=== PATIENT | male | born 1985 | race African-American/Black ===

== ENCOUNTER 2016-05-19 06:52 | Emergency (ER) | payer MEDICAID ==
[~2016-05-19] VITALS: Ht 175.3 cm; Wt 84.0 kg
[2016-05-19 07:47] LABS: HEMATOCRIT. 42.7 % (42.0-52.0); MEAN CORPUSCULAR HEMOGLOBIN 27.3 pg (28.0-32.0); MEAN CORPUSCULAR HGB CONC 32.9 g/dL (31.0-37.0); MEAN PLATELET VOLUME 7.5 fl (7.4-10.4); PLATELET 303 x1000/uL (130-400); RED BLOOD CELL COUNT 5.14 mill/uL (4.7-6.1); RED CELL DISTRIBUTION WIDTH 15.1 % (11.6-14.6); WHITE BLOOD COUNT 5.9 x1000/uL (4.5-11.0)
[2016-05-19 07:48] LABS: DIFFERENTIAL COMMENT 1
[2016-05-19 08:00] LABS: ALANINE AMINOTRANSFERASE 25 IU/L (13-61); ALBUMIN 3.9 g/dL (3.4-5.0); ANION GAP 12; CALCIUM 8.3 mg/dL (8.5-10.1); CARBON DIOXIDE 30 mEq/L (21-32); CHLORIDE 103 mEq/L (98-107); INDEX HEMOLYSI 1 (1-3); INDEX ICTERIC 1 (1-4); INDEX LIPEMIC 1 (1-3); LIPASE 141 IU/L (73-393); UREA NITROGEN BLOOD 13 mg/dL (7-21); eGFR > 60 mL/min (>60)
[2016-05-19 08:11] LABS: ANISOCYTOSIS 1+; PLATELET ESTIMATE NORMAL
[2016-05-19] MEDS ORDERED: IBUPROFEN 400MG TABLET PO ONE (08:45)
[2016-05-19 09:58] VITALS: BP 135/72
== END 2016-05-19 09:59 | disposition home or self-care (01) ==
LOC: ER 08:01
DX: R52 Pain, unspecified (principal); F31.9 Bipolar disorder, unspecified; F41.9 Anxiety disorder, unspecified; F20.9 Schizophrenia, unspecified; F17.200 Nicotine dependence, unspecified, uncomplicated; F12.10 Cannabis abuse, uncomplicated
CPT/HCPCS: 36415; 71010; 80053; 83690; 85025; 99285; Z7610

== ENCOUNTER 2016-07-25 08:09 | Emergency (ER) | payer MEDICAID ==
[~2016-07-25] VITALS: Ht 175.3 cm; Wt 80.0 kg
[2016-07-25 08:10] VITALS: BP 134/90
[2016-07-25 09:01] LABS: BASOPHILS % 0.9 % (0.0-2.0); EOSINOPHILS % 0.1 % (0.0-5.0); HEMOGLOBIN. 13.9 g/dL (14.0-18.0); LYMPHOCYTES % 13.4 % (20.0-50.0); MEAN CORPUSCULAR VOLUME 81.8 fL (80.0-94.0); MONOCYTES % 6.9 % (2.0-8.0); NEUTROPHILS % 78.7 % (40.0-76.0); PLATELET 276 x1000/uL (130-400); RED BLOOD CELL COUNT 5.13 mill/uL (4.7-6.1); RED CELL DISTRIBUTION WIDTH 14.5 % (11.6-14.6)
[2016-07-25 09:14] LABS: CARBON DIOXIDE 33 mEq/L (21-32); CHLORIDE 102 mEq/L (98-107); ETHANOL BLOOD < 10 mg/dL
[2016-07-25 10:45] LABS: CLARITY URINE CLEAR (CLEAR); COLOR URINE YELLOW (YELLOW); GLUCOSE URINE NEGATIVE (NEGATIVE); KETONES URINE NEGATIVE (NEGATIVE); LEUKOCYTE ESTERASE URINE NEGATIVE (NEGATIVE); NITRITE URINE NEGATIVE (NEGATIVE); OCCULT BLOOD URINE NEGATIVE (NEGATIVE); PROTEIN URINE NEGATIVE (NEGATIVE); SPECIFIC GRAVITY URINE 1.007 (1.005-1.030); UROBILINOGEN URINE 0.2 E.U./dL (0.2-1.0)
[2016-07-25 10:57] LABS: *AMPHETAMINES SCREEN URINE PRESUMTIVE POSITIVE (NEGATIVE); *BARBITURATES SCREEN URINE NEGATIVE (NEGATIVE); *BENZODIAZEPINES SCREEN URINE NEGATIVE (NEGATIVE); *COCAINE SCREEN URINE NEGATIVE (NEGATIVE); CANNABINOID URINE SCREEN PRESUMTIVE POSITIVE (NEGATIVE); METHADONE URINE SCREEN NEGATIVE (NEGATIVE); OPIATES URINE SCREEN NEGATIVE (NEGATIVE); PHENCYCLIDINE URINE SCREEN NEGATIVE (NEGATIVE)
[2016-07-25] MEDS ORDERED: MAGNESIUM/ALUMINUM HYDROXIDE/SIMETHICONE 30ML UDC PO STA (11:12)
[2016-07-25] MEDS ORDERED: VISCOUS LIDOCAINE 2% 15 ML UDC PO STA (11:12)
== END 2016-07-25 13:38 | disposition home or self-care (01) ==
LOC: ER 08:15
DX: K29.70 Gastritis, unspecified, without bleeding (principal); F41.9 Anxiety disorder, unspecified; F31.9 Bipolar disorder, unspecified; F20.9 Schizophrenia, unspecified; F15.10 Other stimulant abuse, uncomplicated; F12.10 Cannabis abuse, uncomplicated; Z90.49 Acquired absence of other specified parts of digestive tract
CPT/HCPCS: 36415; 80053; 80305; 81003; 83690; 85025; 99284; G0482

== ENCOUNTER 2016-10-27 19:09 | Emergency (ER) | payer MEDICAID ==
[~2016-10-27] VITALS: Ht 177.8 cm; Wt 75.0 kg
[2016-10-27 19:43] VITALS: BP 150/78
== END 2016-10-28 00:17 | disposition left against medical advice (07) ==
LOC: ER 19:09
DX: R10.9 Unspecified abdominal pain (principal); Z53.21 Procedure and treatment not carried out due to patient leaving prior to being seen by health care provider

== ENCOUNTER 2016-11-15 17:21 | Emergency (ER) | payer MEDICAID ==
[~2016-11-15] VITALS: Ht 175.3 cm; Wt 84.0 kg
[2016-11-15 17:34] VITALS: BP 129/95
== END 2016-11-15 19:10 | disposition left against medical advice (07) ==
LOC: ER 17:21
DX: N50.819 Testicular pain, unspecified (principal); Z53.21 Procedure and treatment not carried out due to patient leaving prior to being seen by health care provider

== ENCOUNTER 2017-03-03 21:43 | Emergency (ER) | payer MEDICAID | END 2017-03-03 21:45 | disposition left against medical advice (07) | LOC: ER 21:43 | DX: R10.9 Unspecified abdominal pain (principal); Z53.21 Procedure and treatment not carried out due to patient leaving prior to being seen by health care provider ==

== ENCOUNTER 2017-03-04 06:37 | Emergency (ER) | payer MEDICAID ==
[~2017-03-04] VITALS: Ht 175.3 cm; Wt 81.0 kg
[2017-03-04 07:45] VITALS: BP 120/76
[2017-03-04] MEDS ORDERED: ACETAMINOPHEN 325MG TABLET PO STA (08:19)
[2017-03-04] MEDS ORDERED: ONDANSETRON 4MG ODT PO STA (08:19)
[2017-03-04 08:40] LABS: BASOPHILS % 1.2 % (0.0-2.0); EOSINOPHILS % 5.3 % (0.0-5.0); HEMATOCRIT. 44.4 % (42.0-52.0); HEMOGLOBIN. 14.3 g/dL (14.0-18.0); LYMPHOCYTES % 48.9 % (20.0-50.0); MEAN CORPUSCULAR VOLUME 83.6 fL (80.0-94.0); MEAN PLATELET VOLUME 7.6 fl (7.4-10.4); MONOCYTES % 8.5 % (2.0-8.0); NEUTROPHILS % 36.1 % (40.0-76.0); PLATELET 294 x1000/uL (130-400); RED BLOOD CELL COUNT 5.31 mill/uL (4.7-6.1); RED CELL DISTRIBUTION WIDTH 14.9 % (11.6-14.6)
[2017-03-04 08:45] LABS: CHLORIDE 103 mEq/L (98-107)
[2017-03-04 08:47] LABS: INR 1.1; PROTHROMBIN TIME 11.1 sec (9.4-11.6)
[2017-03-04 08:54] LABS: CARBON DIOXIDE 33 mEq/L (21-32)
== END 2017-03-04 09:14 | disposition home or self-care (01) ==
LOC: ER 07:15
DX: R10.9 Unspecified abdominal pain (principal); F17.200 Nicotine dependence, unspecified, uncomplicated; F12.10 Cannabis abuse, uncomplicated
CPT/HCPCS: 36415; 80053; 83690; 85025; 85610; 99284; Q0162; Z7610

== ENCOUNTER 2017-05-01 10:52 | Emergency (ER) | payer MEDICAID ==
[~2017-05-01] VITALS: Ht 177.8 cm; Wt 83.0 kg
[2017-05-01] MEDS ORDERED: LORAZEPAM 1MG TABLET PO ONE (12:30)
[2017-05-01] MEDS ORDERED: ONDANSETRON 4MG ODT PO ONE (12:30)
[2017-05-01 13:15] LABS: CLARITY URINE CLEAR (CLEAR); COLOR URINE YELLOW (YELLOW); KETONES URINE NEGATIVE (NEGATIVE); LEUKOCYTE ESTERASE URINE NEGATIVE (NEGATIVE); NITRITE URINE NEGATIVE (NEGATIVE); OCCULT BLOOD URINE NEGATIVE (NEGATIVE); PROTEIN URINE NEGATIVE (NEGATIVE); SPECIFIC GRAVITY URINE 1.002 (1.005-1.030); UROBILINOGEN URINE 0.2 E.U./dL (0.2-1.0)
[2017-05-01 13:34] LABS: *AMPHETAMINES SCREEN URINE PRESUMTIVE POSITIVE (NEGATIVE); *BARBITURATES SCREEN URINE NEGATIVE (NEGATIVE); *BENZODIAZEPINES SCREEN URINE NEGATIVE (NEGATIVE); *COCAINE SCREEN URINE NEGATIVE (NEGATIVE); CANNABINOID URINE SCREEN PRESUMTIVE POSITIVE (NEGATIVE); METHADONE URINE SCREEN NEGATIVE (NEGATIVE); OPIATES URINE SCREEN NEGATIVE (NEGATIVE); PHENCYCLIDINE URINE SCREEN NEGATIVE (NEGATIVE)
[2017-05-01 15:15] LABS: EOSINOPHILS % 0.9 % (0.0-5.0); HEMATOCRIT. 41.2 % (42.0-52.0); LYMPHOCYTES % 36.1 % (20.0-50.0); MEAN CORPUSCULAR HEMOGLOBIN 27.7 pg (28.0-32.0); MEAN CORPUSCULAR VOLUME 81.7 fL (80.0-94.0); MEAN PLATELET VOLUME 7.5 fl (7.4-10.4); PLATELET 421 x1000/uL (130-400); RED BLOOD CELL COUNT 5.05 mill/uL (4.7-6.1); RED CELL DISTRIBUTION WIDTH 14.4 % (11.6-14.6)
[2017-05-01 15:21] LABS: CHLORIDE 103 mEq/L (98-107)
[2017-05-01 15:26] LABS: ETHANOL BLOOD < 10 mg/dL
[2017-05-01] MEDS ORDERED: OLANZAPINE 10MG TABLET PO SCH (17:00)
[2017-05-02 04:52] VITALS: BP 104/70
== END 2017-05-02 07:12 | disposition home or self-care (01) ==
LOC: ER 10:52
DX: F29 Unspecified psychosis not due to a substance or known physiological condition (principal); F19.10 Other psychoactive substance abuse, uncomplicated; F12.10 Cannabis abuse, uncomplicated; F17.200 Nicotine dependence, unspecified, uncomplicated; F15.10 Other stimulant abuse, uncomplicated; Z90.49 Acquired absence of other specified parts of digestive tract
CPT/HCPCS: 36415; 80053; 80305; 81003; 85025; 99284; G0482; J7030; Z7610

== ENCOUNTER 2017-05-05 23:54 | Emergency (ER) | payer MEDICAID ==
[~2017-05-05] VITALS: Ht 175.3 cm; Wt 71.0 kg
[2017-05-06] MEDS ORDERED: KETOROLAC 60MG/2ML VIAL IM ONE (00:45)
[2017-05-06 04:00] VITALS: BP 126/82
== END 2017-05-06 04:40 | disposition home or self-care (01) ==
LOC: ER 05-06 00:38
DX: R51 Headache (principal); F17.200 Nicotine dependence, unspecified, uncomplicated; F12.10 Cannabis abuse, uncomplicated; F15.10 Other stimulant abuse, uncomplicated; Z90.49 Acquired absence of other specified parts of digestive tract; Y04.0XXA Assault by unarmed brawl or fight, initial encounter; Y93.89 Activity, other specified; Y92.89 Other specified places as the place of occurrence of the external cause
CPT/HCPCS: 70486; 96372; 99284; J1885; Z7610

== ENCOUNTER 2017-05-19 00:38 | Emergency (ER) | payer MEDICAID ==
[~2017-05-19] VITALS: Ht 175.3 cm; Wt 80.0 kg
[2017-05-19 04:00] VITALS: BP 116/70
== END 2017-05-19 04:45 | disposition home or self-care (01) ==
LOC: ER 00:52
DX: J02.9 Acute pharyngitis, unspecified (principal); F17.200 Nicotine dependence, unspecified, uncomplicated; F12.10 Cannabis abuse, uncomplicated; Z90.49 Acquired absence of other specified parts of digestive tract; Z98.890 Other specified postprocedural states
CPT/HCPCS: 99282

== ENCOUNTER 2017-06-26 01:11 | Emergency (ER) | payer MEDICAID ==
[~2017-06-26] VITALS: Ht 175.3 cm; Wt 86.0 kg
[2017-06-26] MEDS ORDERED: OLANZAPINE 10MG TABLET ODT PO ONE (01:30)
[2017-06-26 01:44] LABS: HEMATOCRIT. 39.2 % (42.0-52.0); HEMOGLOBIN. 13.1 g/dL (14.0-18.0); MEAN CORPUSCULAR HEMOGLOBIN 27.2 pg (28.0-32.0); MEAN CORPUSCULAR VOLUME 81.7 fL (80.0-94.0); MEAN PLATELET VOLUME 7.2 fl (7.4-10.4); PLATELET 316 x1000/uL (130-400); RED BLOOD CELL COUNT 4.79 mill/uL (4.7-6.1); RED CELL DISTRIBUTION WIDTH 15.2 % (11.6-14.6)
[2017-06-26] MEDS ORDERED: OLANZAPINE 10 MG/VIAL IM ONE (01:45)
[2017-06-26 01:53] LABS: CHLORIDE 106 mEq/L (98-107)
[2017-06-26 01:57] LABS: ETHANOL BLOOD < 10 mg/dL
[2017-06-26 02:38] LABS: PLATELET ESTIMATE NORMAL
[2017-06-26 09:17] LABS: CLARITY URINE CLEAR (CLEAR); COLOR URINE YELLOW (YELLOW); KETONES URINE TRACE (NEGATIVE); LEUKOCYTE ESTERASE URINE NEGATIVE (NEGATIVE); NITRITE URINE NEGATIVE (NEGATIVE); OCCULT BLOOD URINE NEGATIVE (NEGATIVE); PROTEIN URINE NEGATIVE (NEGATIVE); SPECIFIC GRAVITY URINE 1.028 (1.005-1.030)
[2017-06-26 10:00] LABS: CANNABINOID URINE SCREEN PRESUMTIVE POSITIVE (NEGATIVE); PHENCYCLIDINE URINE SCREEN NEGATIVE (NEGATIVE)
[2017-06-26 10:01] LABS: *AMPHETAMINES SCREEN URINE PRESUMTIVE POSITIVE (NEGATIVE); METHADONE URINE SCREEN NEGATIVE (NEGATIVE)
[2017-06-26 10:04] LABS: *COCAINE SCREEN URINE NEGATIVE (NEGATIVE); OPIATES URINE SCREEN NEGATIVE (NEGATIVE)
[2017-06-26 10:05] LABS: *BARBITURATES SCREEN URINE NEGATIVE (NEGATIVE)
[2017-06-26 10:08] LABS: *BENZODIAZEPINES SCREEN URINE NEGATIVE (NEGATIVE)
[2017-06-26 14:14] VITALS: BP 101/72
== END 2017-06-26 14:38 | disposition home or self-care (01) ==
LOC: ER 01:11
DX: F29 Unspecified psychosis not due to a substance or known physiological condition (principal)
CPT/HCPCS: 36415; 80053; 80305; 80307; 80329; 81003; 85025; 96372; 99284; G0482; J3490; Z7610

== ENCOUNTER 2017-09-04 13:42 | Emergency (ER) | payer MEDICAID ==
[~2017-09-04] VITALS: Ht 175.3 cm; Wt 86.0 kg
[2017-09-04 19:00] VITALS: BP 120/82
== END 2017-09-04 19:13 | disposition home or self-care (01) ==
LOC: ER 14:51
DX: S90.562A Insect bite (nonvenomous), left ankle, initial encounter (principal); L29.9 Pruritus, unspecified; W57.XXXA Bitten or stung by nonvenomous insect and other nonvenomous arthropods, initial encounter; Y93.89 Activity, other specified; Y92.89 Other specified places as the place of occurrence of the external cause; Y99.8 Other external cause status
CPT/HCPCS: 99283

== ENCOUNTER 2017-11-15 18:07 | Emergency (ER) | payer MEDICAID ==
[~2017-11-15] VITALS: Ht 177.8 cm; Wt 90.0 kg
[2017-11-15 22:07] LABS: BASOPHILS % 1.1 % (0.0-2.0); HEMATOCRIT. 39.1 % (42.0-52.0); HEMOGLOBIN. 12.8 g/dL (14.0-18.0); LYMPHOCYTES % 33.2 % (20.0-50.0); MEAN CORPUSCULAR HEMOGLOBIN 27.4 pg (28.0-32.0); MEAN CORPUSCULAR VOLUME 83.6 fL (80.0-94.0); MEAN PLATELET VOLUME 8.2 fl (7.4-10.4); MONOCYTES % 5.6 % (2.0-8.0); NEUTROPHILS % 59.1 % (40.0-76.0); PLATELET 357 x1000/uL (130-400); RED BLOOD CELL COUNT 4.68 mill/uL (4.7-6.1); RED CELL DISTRIBUTION WIDTH 15.3 % (11.6-14.6)
[2017-11-15 22:11] LABS: CHLORIDE 101 mEq/L (98-107)
[2017-11-15 22:16] LABS: ETHANOL BLOOD < 10 mg/dL
[2017-11-15 22:30] VITALS: BP 140/78
[2017-11-15 23:11] LABS: CLARITY URINE CLEAR (CLEAR); COLOR URINE YELLOW (YELLOW); KETONES URINE NEGATIVE (NEGATIVE); LEUKOCYTE ESTERASE URINE NEGATIVE (NEGATIVE); NITRITE URINE NEGATIVE (NEGATIVE); OCCULT BLOOD URINE NEGATIVE (NEGATIVE); PROTEIN URINE NEGATIVE (NEGATIVE); SPECIFIC GRAVITY URINE 1.016 (1.005-1.030); UROBILINOGEN URINE 0.2 E.U./dL (0.2-1.0)
[2017-11-15 23:19] LABS: *AMPHETAMINES SCREEN URINE PRESUMTIVE POSITIVE (NEGATIVE); *BARBITURATES SCREEN URINE NEGATIVE (NEGATIVE); *BENZODIAZEPINES SCREEN URINE NEGATIVE (NEGATIVE); *COCAINE SCREEN URINE NEGATIVE (NEGATIVE)
[2017-11-15 23:20] LABS: CANNABINOID URINE SCREEN PRESUMTIVE POSITIVE (NEGATIVE); METHADONE URINE SCREEN NEGATIVE (NEGATIVE); OPIATES URINE SCREEN NEGATIVE (NEGATIVE); PHENCYCLIDINE URINE SCREEN NEGATIVE (NEGATIVE)
== END 2017-11-16 00:26 | disposition home or self-care (01) ==
LOC: ER 18:07
DX: F29 Unspecified psychosis not due to a substance or known physiological condition (principal); F12.10 Cannabis abuse, uncomplicated; Z90.89 Acquired absence of other organs
CPT/HCPCS: 36415; 80053; 80305; 80307; 80329; 81003; 85025; 99284; G0482

== ENCOUNTER 2018-04-20 04:18 | Emergency (ER) | payer MEDICAID ==
[~2018-04-20] VITALS: Ht 170.2 cm; Wt 62.0 kg
[2018-04-20 07:25] VITALS: BP 129/68
== END 2018-04-20 08:52 | disposition left against medical advice (07) ==
LOC: ER 04:18
DX: R07.0 Pain in throat (principal); F12.10 Cannabis abuse, uncomplicated; Z90.49 Acquired absence of other specified parts of digestive tract
CPT/HCPCS: 82962; 99283

== ENCOUNTER 2019-01-06 18:17 | Emergency (ER) | payer MEDICAID ==
[~2019-01-06] VITALS: Ht 175.3 cm; Wt 80.0 kg
[2019-01-06] MEDS ORDERED: IBUPROFEN 600MG TABLET PO ONE (19:30)
[2019-01-06] MEDS ORDERED: ACETAMINOPHEN 325MG TABLET PO ONE (20:15)
[2019-01-06 20:21] VITALS: BP 158/64
== END 2019-01-06 20:27 | disposition home or self-care (01) ==
LOC: ER 18:17
DX: M79.672 Pain in left foot (principal); M79.671 Pain in right foot; F12.10 Cannabis abuse, uncomplicated; Z90.49 Acquired absence of other specified parts of digestive tract
CPT/HCPCS: 73620; 99283

== ENCOUNTER 2019-04-26 11:19 | Emergency (ER) | payer MEDICAID ==
[~2019-04-26] VITALS: Ht 180.3 cm; Wt 80.0 kg
[2019-04-26] MEDS ORDERED: HYDROCODONE/ACETAMINOPHEN 5/325MG TABLET PO ONE (14:30)
[2019-04-26] MEDS ORDERED: KETOROLAC 60MG/2ML VIAL IM ONE (14:30)
[2019-04-26 16:50] VITALS: BP 118/97
== END 2019-04-26 16:51 | disposition home or self-care (01) ==
LOC: ER 11:19
DX: M25.511 Pain in right shoulder (principal); F12.10 Cannabis abuse, uncomplicated; Z90.49 Acquired absence of other specified parts of digestive tract; Y04.0XXA Assault by unarmed brawl or fight, initial encounter; Y93.89 Activity, other specified; Y92.488 Other paved roadways as the place of occurrence of the external cause
CPT/HCPCS: 73030; 96372; 99283; J1885